=== PATIENT | male | born 1990 | race Caucasian/White ===

== ENCOUNTER 2018-05-12 02:58 | Emergency (ER) | payer OTHER ==
[2018-05-12 03:05] VITALS: BP 152/81
--- NOTE | 2018-05-12 03:07 | EDPHY ---
H & P Stated Complaint: finger laceration. pt states"glass" pt refusing to give details of injury Time Seen by Provider: 05/12/18 03:07 HPI/ROS: HPI CHIEF COMPLAINT: Right index finger laceration distal aspect. HISTORY OF PRESENT ILLNESS: 27-year-old male, presents emergency room with a laceration to the distal aspect of his right index finger. He would not explain how this happen. He states he just injured earlier on a piece of glass. He would not expand on any did Omar of this. He does state his tetanus shot is up-to-date. He does state he had alcohol this evening. Denies any other areas of injury. Past Medical History: Denies significant medical history Past Surgical History: Denies significant surgical history Social History: Denies drugs or tobacco. Alcohol this evening. Family History: Noncontributory ROS REVIEW OF SYSTEMS: 10 Systems were reviewed and negative with the exception of the elements mentioned in the history of present illness. Exam Constitutional triage nursing summary reviewed, vital signs reviewed, awake/ alert. Eyes normal conjunctivae and sclera, EOMI, PERRLA. HENT normal inspection, atraumatic, moist mucus membranes, no epistaxis, neck supple/ no meningismus, no raccoon eyes. Respiratory clear to auscultation bilaterally, normal breath sounds, no respiratory distress, no wheezing. Cardiovascular rate normal, regular rhythm, no murmur, no edema, distal pulses normal. Gastrointestinal soft, non-tender, no rebound, no guarding, normal bowel sounds, no distension, no pulsatile mass. Genitourinary no CVA tenderness. Musculoskeletal no midline vertebral tenderness, full range of motion, no calf swelling, no tenderness of extremities, no meningismus, good pulses, neurovascularly intact. Skin Right hand: Neurovascular intact good radial pulse, good cap refill, on the index finger distal aspect medial region there is a laceration that went through the distal aspect of the nail and has a laceration fragments hanging on. 5 cm lac. No foreign body or debris visualized. No bony abnormality. No tendon abnormality good cap refill. Neurologic awake, alert and oriented x 3, AAOx3, moves all 4 extremities equally, motor intact, sensory intact, CN II-XII intact, normal cerebellar, normal vision, normal speech. Psychiatric normal mood/affect. Heme/Lymph/Immune no lymphadenopathy. Differential Diagnosis: Includes but is not limited to in a particular order: Right index finger laceration, bony abnormality, foreign body, soft tissue injury, nail bed injury Medical Decision Making: Plan for this patient x-ray right index finger. Will perform digital block to clean irrigate his wound. And then this will need to be repaired. Re-evaluation: Digital Block Procedure: Verbal consent was obtained. 1% lidocaine without epinephrine was used. 6 cc were instilled at the base of the right index finger palmar side. He had good resolution of pain. And inappropriate right index finger digital block. No complications. The skin was prepped and clean. Laceration Repair Procedure: Verbal Consent was obtained, Under sterile conditions, The patient had lidocaine without epinephrine used approximately 3 ccs to local anesthetize the right index finger 5 cm Laceration. The wound was copiously irrigated with sterile fluid, the wound was explored for foreign bodies there were none visualized, the wound was explored with a sterile glove to the base. There are no deep structures involved, including no arterial injury. FIVE 6.O PROLENE interrupted Sutures were placed in this patient's laceration. He had good close approximation of the wound edges. He Tolerated this well. Patient has been placed in a splint aluminum form. Patient understands have sutures out 12-14 days. Follow up with Hand surgery or return here. Ibuprofen for mild pain [place] for severe pain. Patient understands this laceration is a very sensitive area of the distal aspect of his right index finger. Very easy to hit things on and read tear the sutures. I highly recommend he stays in a finger splint for comfort and protection immobilization. X-ray was reviewed of the right index finger. No evidence of foreign body or fracture. Source: Patient - Personal History Current Tetanus/Diphtheria Vaccine: Yes Current Tetanus Diphtheria and Acellular Pertussis (TDAP): Yes Tetanus Vaccine Date: 2017 - Medical/Surgical History Hx Asthma: No Hx Chronic Respiratory Disease: No Hx Diabetes: No Hx Cardiac Disease: No Hx Renal Disease: No Hx Cirrhosis: No Hx Alcoholism: No Hx HIV/AIDS: No Hx Splenectomy or Spleen Trauma: No Other PMH: pt denies - Social History Smoking Status: Current every day smoker Constitutional: Initial Vital Signs Temperature (C) 37.1 C 05/12/18 03:02 Heart Rate 99 05/12/18 03:02 Respiratory Rate 18 05/12/18 03:02 Blood Pressure 152/81 H 05/12/18 03:02 O2 Sat (%) 96 05/12/18 03:02 O2 Delivery Mode Room Air Allergies/Adverse Reactions: No Known Allergies Allergy (Unverified 05/12/18 03:04) Home Medications: Medication Instructions Recorded Hydrocodone/APAP 5/325 [[place] 1 - 2 tab PO Q4H PRN #10 tab 05/12/18 5/325] Ibuprofen [Motrin (*)] 800 mg PO Q6-8PRN #10 tab 05/12/18 Departure - Departure Disposition: Home, Routine, Self-Care Clinical Impression: Laceration Finger laceration Qualifiers: Encounter type: initial encounter Finger: index finger Damage to nail status: with damage Foreign body presence: without foreign body Laterality: right Qualified Code(s): S61.310A - Laceration without foreign body of right index finger with damage to nail, initial encounter Condition: Good Instructions: Care For Your Stitches (ED), Laceration (ED) Additional Instructions: 1. Stay in your splint for comfort and protection. 2. Watch for infection 3. Sutures need to be removed in 12-14 days. 4. Follow up with Hand surgery. Referrals: NONE *PRIMARY CARE P,. [Primary Care Provider] - As per Instructions Enrique Cook MD [Medical Doctor] - As per Instructions Prescriptions: Hydrocodone/APAP 5/325 [[place] 5/325] 1 - 2 tab PO Q4H PRN #10 tab PRN Reason: Pain, Moderate Ibuprofen [Motrin (*)] 800 mg PO Q6-8PRN #10 tab
== END 2018-05-12 04:18 | disposition home or self-care (01) ==
PROC: 0HQFXZZ Repair Right Hand Skin, External Approach (ICD-10-PCS; principal; 2018-05-12)
DX: S61.310A Laceration without foreign body of right index finger with damage to nail, initial encounter (principal); W25.XXXA Contact with sharp glass, initial encounter
CPT/HCPCS: L3925